=== PATIENT | female | born 1990 | race Caucasian/White ===

== ENCOUNTER 2019-10-04 11:54 | Outpatient (REF) | payer BC, SELFPAY ==
--- NOTE | 2019-10-04 11:20 | PAPFT_PTH ---
PATIENT: Antionette Bernstein LOC: [facility] U#:[id number] AGE/SX: 29/F ROOM: RE10/04/[address]: Kelly Whitaker NP : 1990 BED: DIS: 10/04/2019 SPEC #: [id number] RECD: 10/04/19 12:48 STATUS: ROSE DAVIS #: [id number] SUMIT: 10/04/19 11:[address]: Kelly Whitaker NP DEPT: [facility] Cytology RECD BY: Paula Marin ENTERED: 10/04/19 12:49 SP TYPE: PAPFT JOHAN DR: Trixie Martinez APRN Tissues: 1 - CX/ENDOCX FOR PAP SMEARS Procedures: PAP THIN PREP/[facility] Screening HPV DNA PROBE Comments: [id number]
== END 2019-10-04 12:14 ==
LOC: LBN 11:54
PROVIDERS: PCP Nurse Practitioner; Visit Provider Nurse Practitioner Women's Health
DX: Z12.4 Encounter for screening for malignant neoplasm of cervix (principal); Z11.51 Encounter for screening for human papillomavirus (HPV)
CPT/HCPCS: 88142; 87624